=== PATIENT | female | born 1995 | race Caucasian/White ===

== ENCOUNTER 2019-04-17 20:07 | Emergency (ER) | payer OTHER ==
[2019-04-17 20:18] VITALS: BP 126/87; PULSE 98; TEMP 97.8; BMI 19.3
[2019-04-17] MEDS ORDERED: LIDOCAINE HCL 2% (20ML MULTI-DOSE VIAL) NR ONE (20:34)
--- NOTE | 2019-04-17 21:14 | PDOC ---
Documentation entered by Samina Araujo SCRIBE, acting as scribe for Albin Jacome MD. Albin Jacome MD: This documentation has been prepared by the Van hernandez Sammi, SCRIBE, under my direction and personally reviewed by me in its entirety. I confirm that the documentation accurately reflects all work, treatment, procedures, and medical decision making performed by me. History of Present Illness - General Chief Complaint: Injury Stated Complaint: LACERATION/PUNCTURE LEFT 3RD FINGER Time Seen by Provider: 04/17/19 20:33 - History of Present Illness Initial Comments: 04/17/19 21:03 The patient is a 23 year old female who presents to the emergency department for evaluation of a laceration to the left 3rd digit sustained tonight when cutting a potato. She denies all other complaints. Past History - Past Medical History Allergies/Adverse Reactions: Allergies Allergy/AdvReac Type Severity Reaction Status Date / Time No Known Allergies Allergy Verified 04/17/19 20:08 Home Medications: Ambulatory Orders Norethindrone-E.estradiol-Iron [Loestrin Fe 1-20 Tablet] 1 tab PO DAILY COPD: No Other medical history: denies - Psycho Social/Smoking Cessation Hx Smoking History: Never smoked Have you smoked in the past 12 months: No Information on smoking cessation initiated: No Hx Alcohol Use: (social) Review of Systems - Review of Systems Comments:: 04/17/19 21:04 GENERAL/CONSTITUTIONAL: No fever or chills. No weakness. CARDIOVASCULAR: No chest pain or shortness of breath. RESPIRATORY: No cough, wheezing, or hemoptysis. GASTROINTESTINAL: No nausea, vomiting, diarrhea or constipation. GENITOURINARY: No dysuria, frequency, or change in urination. MUSCULOSKELETAL: No joint or muscle swelling or pain. No neck or back pain. SKIN: + laceration to left 3rd digit NEUROLOGIC: No headache, vertigo, loss of consciousness, or change in strength/ sensation. *Physical Exam - Vital Signs Last Vital Signs Temp Pulse Resp BP Pulse Ox 97.8 F 98 H 18 126/87 100 04/17/19 20:07 04/17/19 20:07 04/17/19 20:07 04/17/19 20:07 04/17/19 20:07 - Physical Exam Comments: 04/17/19 21:07 GENERAL: Awake, alert, and fully oriented, in no acute distress LUNGS: Breath sounds equal, clear to auscultation bilaterally. No wheezes, and no crackles HEART: Regular rate and rhythm, normal S1 and S2, no murmurs, rubs or gallops ABDOMEN: Soft, nontender, normoactive bowel sounds. No guarding, no rebound. No masses EXTREMITIES: Normal range of motion, no edema. No clubbing or cyanosis. No cords, erythema, or tenderness NEUROLOGICAL: Cranial nerves II through XII grossly intact. Normal speech, normal gait SKIN: +1cm laceration to left middle phalange. Warm, Dry, normal turgor, no rashes. Procedures - Laceration/Wound Repair Left 3rd digit Wound Length: to 2.5 cm Wound Explored: clean, no foreign body present Wound's Depth, Shape: into muscle Irrigated w/ Saline: Yes Anesthesia: 1% Lidocaine Wound Debrided: extensive tap water irrigation after local anesthesia Wound Repaired With: Dermabond Medical Decision Making - Medical Decision Making 04/18/19 05:13 lac repaired tetanus utd Discharge - Discharge Information Problems reviewed: Yes Clinical Impression/Diagnosis: Laceration Condition: Stable Disposition: HOME - Admission No - Follow up/Referral - Patient Discharge Instructions Patient Printed Discharge Instructions: DI for Laceration Repair With Dermabond - Post Discharge Activity
== END 2019-04-17 21:28 | disposition home or self-care (01) ==
LOC: FER 20:07
PROC: 0HQGXZZ Repair Left Hand Skin, External Approach (ICD-10-PCS; principal; 2019-04-17)
DX: S61.213A Laceration without foreign body of left middle finger without damage to nail, initial encounter (principal); W26.0XXA Contact with knife, initial encounter; Y93.G1 Activity, food preparation and clean up; Y92.89 Other specified places as the place of occurrence of the external cause
CPT/HCPCS: 99281-25